=== PATIENT | male | born 1965 ===

== ENCOUNTER 2019-11-29 10:41 | Outpatient (CLI) | payer BC, SELFPAY ==
[2019-11-29 10:53] LABS: Basophils Absolute Auto 0.03 K/mm3 (0.00-0.10); Basophils Percent Auto 0.4 % (0.0-1.0); Eosinophils Absolute Auto 0.08 K/mm3 (0.02-0.50); Eosinophils Percent Auto 1.2 % (1.0-6.0); Hematocrit 44.1 % (40.0-54.0); Hemoglobin 14.8 g/dL (14.0-18.0); Immature Granulocyte Absolute 0.04 K/mm3 (0.00-0.00); Immature Granulocyte Percent A 0.6 % (0.0-0.0); Lymphocytes Absolute Auto 2.23 K/mm3 (1.10-4.50); Lymphocytes Percent Auto 33.4 % (18.0-42.0); Mean Corpuscular HGB Conc 33.6 g/dL (32.0-36.0); Mean Corpuscular Hemoglobin 30.6 pg (27.0-31.0); Mean Corpuscular Volume 91.1 fL (78.0-102.0); Mean Platelet Volume 10.5 fl (8.7-11.0); Monocytes Percent Auto 10.5 % (2.0-11.0); Neutrophils Absolute Auto 3.6 K/mm3 (1.7-7.2); Neutrophils Percent Auto 53.9 % (50.0-70.0); Platelet Count Result 286 K/mm3 (150-420); Red Blood Count 4.84 M/mm3 (4.70-6.10); Red Cell Distribution Width 12.1 % (11.6-14.4); White Blood Count 6.7 K/mm3 (4.8-10.8)
[2019-11-29 11:04] LABS: Creatinine Urine 28.01 mg/dL (40-278); MALB Creatinine Ratio 4.6 mg/g (0-30); Microalbumin Urine Random 1.3 mg/L
[2019-11-29 11:05] LABS: Hemoglobin A1C 5.4 % (<5.7)
[2019-11-29 11:40] LABS: Alanine Aminotransferase 36 U/L (16-63); Albumin Level 3.8 g/dL (3.4-5.0); Alkaline Phosphatase 92 U/L (46-116); Anion Gap 11.2 mmol/L (7-16); Aspartate Amino Transferase 20 U/L (15-37); Bilirubin,Total 0.5 mg/dL (0.00-1.00); Blood Urea Nitrogen 21 mg/dL (7-18); Calcium 9.5 mg/dL (8.5-10.1); Carbon Dioxide 31 mmol/L (21-32); Chloride 100 mmol/L (98-108); Cholesterol 206 mg/dL (0-200); Estimated Glomerular Filt Rate 55; Glucose 104 mg/dL (70-99); HDL Direct 30 mg/dL (40-60); LDL Cholesterol Calculated 140 mg/dL (<130); Osmolality Calculated 289 mOsm/kg (285-295); Potassium 4.2 mmol/L (3.5-5.1); Sodium 138 mmol/L (136-145); Total Protein 7.3 g/dL (6.4-8.2); Triglycerides 179 mg/dL (0-150); Uric Acid 9.3 mg/dL (3.5-7.2)
[2019-12-02 04:22] LABS: Hepatitis C Signal to Cutoff 0.02 ratio (<1.00); Hepatitis C Virus Antibody Nonreactive (Nonreactive)
== END 2019-11-29 10:42 | disposition home or self-care (01) ==
PROVIDERS: PCP Family Medicine; Visit Provider Family Medicine
DX: M10.9 Gout, unspecified (principal); I10 Essential (primary) hypertension; Z11.59 Encounter for screening for other viral diseases; R73.02 Impaired glucose tolerance (oral)
CPT/HCPCS: 36415; 80053; 80061; 82043; 83036; 84443; 84550; 85025

== ENCOUNTER 2021-10-04 09:46 | Outpatient (NON) | payer BC, SELFPAY | END 2021-10-04 09:47 | disposition home or self-care (01) | LOC: CHSLAB 09:48 | PROVIDERS: Visit Provider Family Medicine | DX: N39.0 Urinary tract infection, site not specified (principal) | CPT/HCPCS: 87077; 87086; 87088; 87186 ==

== ENCOUNTER 2022-06-03 13:04 | Outpatient (CLI) | payer BC, SELFPAY ==
--- NOTE | ~2022-06-03 | XR_ITS ---
XR elbow RT min 3V DATE: 06/03/2022 13:21 INDICATION: Elbow injury one month ago. Posterior pain TECHNIQUE: 4 views COMPARISON: None FINDINGS: Prominent dorsal spurring at the olecranon process. No fracture or dislocation or joint effusion. No periosteal reaction or bone destruction. IMPRESSION: Prominent dorsal olecranon process spur Reviewed, dictated and finalized at location B. 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
== END 2022-06-03 13:05 | disposition home or self-care (01) ==
LOC: CHSIMG 13:05
PROVIDERS: PCP Family Medicine; Visit Provider Family Medicine
DX: M25.521 Pain in right elbow (principal)
CPT/HCPCS: 73080

== ENCOUNTER 2023-01-02 15:22 | Observation (INO) | payer BC, SELFPAY ==
[2023-01-02] VITALS (29 sets, daily range): BP systolic 109–182; BP diastolic 64–94; PULSE 68–83; RESP 17–30; TEMP 36.5–37.2; O2SAT 95–100; BMI 36.1
--- NOTE | ~2023-01-02 | CT_ITS ---
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 Automated exposure control and iterative reconstruction technique were employe d. The dose-length product was 1160.00 mGy-cm. COMPARISON: None. FINDINGS: Lower thorax: Bilateral sub-6 mm pulmonary nodules. Dependent atelectasis. Aortic valve/coronary jasvir ry calcification. Liver: Enlarged. Tiny, subcentimeter hypodensity at the liver dome, too small to characterize but mos t likely represents a cyst or hemangioma. Biliary/Gallbladder: Mild gallbladder dilation. No stone. Mild gallbladder wall inflammatory change. No bile duct dilation. Pancreas: No mass or duct dilation. Spleen: Normal. Adrenals:No mass. Kidneys: Multiple bilateral cysts and lesions that are too small to characterize but most likely repr esent cysts. No suspicious mass. Mild bilateral perinephric stranding. No obstructing calcification o r suspicious mass. GI tract: No small or large bowel dilation. Normal appendix. Mesentery/Peritoneum: No ascites, mass, or free air. Retroperitoneum: No mass. Atherosclerotic abdominal aortic and/or arterial calcifications. Pelvis: Mild prostate enlargement. Urinary bladder wall thickening. Soft Tissues: Soft tissues and body wall unremarkable. Bones: No acute osseous finding. Uncomplicated lumbar fusion hardware. IMPRESSION: 1. Multiple sub-6 cm pulmonary nodules, which require no additional workup unless the patient is at h igh risk in which case consider an optional low-dose noncontrast CT of the chest in 12 months. 2. Hepatomegaly. 3. Mild gallbladder hydrops with gallbladder wall inflammatory change, may represent acute cholecysti tis in the appropriate clinical context. 4. Urinary bladder wall thickening may be secondary to incomplete distention, outlet compromise or cy stitis. Reviewed, dictated and finalized at location K. IMPRESSION: 1. Multiple sub-6 cm pulmonary nodules, which require no additional workup unle ss the patient is at high risk in which case consider an optional low-dose nonc ontrast CT of the chest in 12 months. 2. Hepatomegaly. 3. Mild gallbladder hydrops with gallbladder wall inflammatory change, may repr esent acute cholecystitis in the appropriate clinical context. 4. Urinary bladder wall thickening may be secondary to incomplete distention, o utlet compromise or cystitis.
--- NOTE | ~2023-01-02 | US_ITS ---
US abdomen complete EXAMINATION: US Abdomen Complete INDICATION: Acute cholecystitis PROCEDURE: Realtime High Resolution abdomen ultrasound. COMPARISON: No prior studies for comparison FINDINGS: Gallbladder wall is thickened. There are gallstones. Possible trace pericholecystic fluid. Common bile duct measures 6.7 mm. Liver echotexture within normal limits without focal mass. Pancreas within normal limits. Pancreati c tail is obscured by bowel gas. Spleen is unremarkeable. Renal echotexture is within normal limits bilaterally without hydronephrosis, contour deforming mass or renal stone. There are bilateral renal cysts, largest on the left measuring 6 cm. Right kidney measures 12 cm. Left kidney measures 10.8 cm. Visualized aspects of the aorta and IVC are within normal limits. Portal vein is patent. Positive son ographic Domingo's sign indicated by the technologist. IMPRESSION: 1: Cholelithiasis with gallbladder wall thickening, positive sonographic Domingo's sign and possible p ericholecystic fluid. Constellation of findings is compatible with cholecystitis. Reviewed, dictated and finalized at location L. IMPRESSION: 1: Cholelithiasis with gallbladder wall thickening, positive sonographic Domingo 's sign and possible pericholecystic fluid. Constellation of findings is compat ible with cholecystitis.
--- NOTE | 2023-01-02 15:23 | ED.ABDPAIN ---
HPI - Abdominal Pain General Chief Complaint: Abdominal Pain Stated Complaint: upper gastric pain Time Seen by Provider: 01/02/23 15:22 Source: patient Mode of arrival: ambulatory Limitations: no limitations History of Present Illness HPI narrative: 57-year-old male, ex-smoker, Alcohol use with a history of hypertension, gout presents to the ER with a 3 hour history of -- acute epigastric pain which started after he ate hamburger. No nausea/vomiting. No diarrhea. No fever. Prior history of intermittent epigastric pain. -- Patient is very anxious and shaky. had colonoscopy in view of family history of colon cancer and was noted to be unremarkable. MD elicited complaint: abdominal pain Pertinent past history: gastritis Pain Consistency: intermittent Location: epigastric Severity: severe Quality: cramping and aching Radiation: none Exacerbating factors: nothing Relieving factors: nothing Associated symptoms: denies other symptoms Related Data Allergies Allergy/AdvReac Type Severity Reaction Status Date / Time No Known Allergies Allergy Verified 01/02/23 15:28 Review of Systems Review of Systems: All systems reviewed & are unremarkable except as noted in HPI and below Constitutional: Constitutional: Reports as per HPI and Reports no additional constitutional complaints Eyes: Eyes: Reports as per HPI and Reports no additional eye complaints ENT: Reports system reviewed and no additional complaints, except as documented and Reports as per HPI Cardiovascular: Cardiovascular: Reports as per HPI and Reports no additional cardiovascular complaints Respiratory: Respiratory: Reports as per HPI and Reports no additional respiratory complaints Gastrointestinal: Gastrointestinal: Reports as per HPI, Reports no additional gastrointestinal complaints and Reports abdominal pain Genitourinary: Genitourinary: Reports no additional male genitourinary complaints Musculoskeletal: Musculoskeletal: Reports no additional musculoskeletal complaints and Reports as per HPI Integumentary/Breasts: Skin/Breast: Reports system reviewed and no additional complaints, except as docu and Reports as per HPI Neurologic: Reports system reviewed and no additional complaints, except as documented and Reports as per HPI [facility] Past Medical History Medical History (Updated 01/02/23 @ 18:32 by Aleksandr Boyle MD) Gout Hypertension Surgical History Surgical History (Updated 08/26/22 @ 13:06 by Kathy Venegas MA) History of ankle surgery 1990 History of back surgery 1997 Social History Social History Smoking status: Never smoker Alcohol intake: current Substance use: never Substance use type: does not use Lack of Transportation: No Lack of Food: Never True Current Housing: I Have Housing Concerned About Future Housing: No Difficulty Paying Gas/Electric Bills: No Difficulty Paying for Meds: No Currently Unemployed: No Education: High School Diploma/GED Difficulty w/ Childcare or Family Care: No Living arrangements: with family Occupation/Education: occupation 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 Will get a CT of the abdomen and pelvis to rule out perforation. blood work revealed a normal white cell count and a normal lipase. Normal lactate. CT revealed questionable acute cholecystitis without any gallstones. It appears unlikely for this patient to have acalculous cholecystitis. The patient is afebrile without any white count and normal LFTs. Will admit the patient and attempt to get an ultrasound in the morning. Meanwhile will keep him NPO give IV fluids and start IV antibiotics. History of alcohol use/ anxiety-- received Ativan with improvement in his anxiety renal insufficiency Vital Signs Vital signs: Vital Signs
--- NOTE | 2023-01-02 15:31 | ECG_ITS ---
Measurements Intervals [place] Rate: 64 P: 50 [place]: 210 QRS: 40 QRSD: 82 T: 48 QT: 369 QTc: 382 Interpretive Statements SINUS RHYTHM WITH FIRST DEGREE AV BLOCK LOW QRS VOLTAGE IN PRECORDIAL LEADS [QRS DEFLECTION < 1.0 mV IN CHEST LEADS] BORDERLINE ECG NO PREVIOUS ECG AVAILABLE FOR COMPARISON Electronically Signed On 01-02-2023 16:15:48 CDT by Felix Killian M.D.
[2023-01-02] MEDS: ONDANSETRON INJ 4 MG/2 ML VIAL IV PUSH (15:48)
[2023-01-02] MEDS: LACTATED RINGERS 1,000 ML 999 ML IV CONT (15:48)
[2023-01-02] MEDS: LORazepam INJ (*CRX) 2 MG/ML VIAL 1 MG IV PUSH (15:49)
[2023-01-02 15:56] LABS: Basophils Absolute Auto 0.04 K/mm3 (0.00-0.10); Basophils Percent Auto 0.5 % (0.0-1.0); Eosinophils Absolute Auto 0.04 K/mm3 (0.02-0.50); Eosinophils Percent Auto 0.5 % (1.0-6.0); Hematocrit 45.3 % (40.0-54.0); Immature Granulocyte Absolute 0.04 K/mm3 (0.00-0.00); Immature Granulocyte Percent A 0.5 % (0.0-0.0); Lymphocytes Absolute Auto 1.11 K/mm3 (1.10-4.50); Lymphocytes Percent Auto 15.1 % (18.0-42.0); Mean Corpuscular HGB Conc 33.1 g/dL (32.0-36.0); Mean Corpuscular Hemoglobin 30.8 pg (27.0-31.0); Mean Platelet Volume 10.8 fl (8.7-11.0); Monocytes Absolute Auto 0.45 K/mm3 (0.10-0.90); Monocytes Percent Auto 6.1 % (2.0-11.0); Neutrophils Absolute Auto 5.7 K/mm3 (1.7-7.2); Neutrophils Percent Auto 77.3 % (50.0-70.0); Platelet Count Result 229 K/mm3 (150-420); Red Blood Count 4.87 M/mm3 (4.70-6.10); Red Cell Distribution Width 12.3 % (11.6-14.4); White Blood Count 7.4 K/mm3 (4.8-10.8)
[2023-01-02 16:09] LABS: INR 0.9; Prothrombin Time 9.9 Seconds (9.50-12.10)
[2023-01-02 16:12] LABS: Alanine Aminotransferase 39 U/L (16-63); Albumin Level 3.6 g/dL (3.4-5.0); Alkaline Phosphatase 102 U/L (46-116); Anion Gap 10 mmol/L (8-16); Aspartate Amino Transferase 23 U/L (15-37); Bilirubin,Total 0.3 mg/dL (0.00-1.00); Blood Urea Nitrogen 21 mg/dL (7-18); Calcium 9.3 mg/dL (8.5-10.1); Carbon Dioxide 25 mmol/L (21-32); Chloride 103 mmol/L (98-108); Estimated CRCL calculation 65 ml/min; Estimated Glomerular Filt Rate 51; Glucose 120 mg/dL (70-99); Lipase 36 U/L (16-77); Osmolality Calculated 290 mOsm/kg (285-295); Potassium 3.9 mmol/L (3.5-5.1); Sodium 138 mmol/L (136-145); Total Protein 7.3 g/dL (6.4-8.2)
[2023-01-02 16:14] LABS: Troponin I 6.9 ng/L (0.00-60.4); Uric Acid 6.9 mg/dL (3.5-7.2)
[2023-01-02 16:15] LABS: Appearance Urine Clear (Clear); Bilirubin Urine Negative (Negative); Blood Urine 2+ (Negative); Color Urine Light Yellow (Yellow); Glucose Urine UA Negative (Negative); Ketones Urine Negative (Negative); Leukocyte Esterase Ur Negative LEU/UL (Negative); Nitrate Urine Negative (Negative); Protein Urine Negative (Negative); Specific Grav Ur 1.015 (1.010-1.020); pH Urine 5.5 (5.0-8.0)
[2023-01-02 16:16] LABS: Lactic Acid Reflex 1.8 mmol/L (0.4-2.0)
[2023-01-02 16:20] LABS: Add Urine Microscopic? YES; Bacteria Urine Trace /hpf; Squamous Epithelial Cell Urine Rare /hpf (Few); WBC Urine None seen /hpf (0-3)
--- NOTE | 2023-01-02 16:53 | PC.NURSE ---
PT IS SLEEPING ON STRETCHER IN EXAM ROOM, REPORTS THE PAIN HAS SUBSIDED. PT IS WAITING CT RESULTS AT THIS TIME. IVF INFUSING ORDERED WITHOUT DIFFICULTY. WILL CONTINUE TO MONITOR.
--- NOTE | 2023-01-02 17:34 | PC.NURSE ---
PT AMBULATORY TO RR WITHOUT DIFFICULTY. NAD NOTED. PT HAS BEEN RESTING ON STRETCHER WITHOUT DIFFICULTY. PT REPORTS HE IS FEELING BETTER. WILL CONTINUE TO MONITOR.
[2023-01-02] MEDS: LACTATED RINGERS 1,000 ML 100 ML IV CONT (18:21)
--- NOTE | 2023-01-02 18:43 | PC.NURSE ---
PT IS TO BE ADMITTED TO ROOM 204. PT IS AWARE AND AGREEABLE TO PLAN OF CARE.
--- NOTE | 2023-01-02 19:48 | ADMGEN ---
This patient, Atul Marrero, was admitted to 2nd Floor Room 204-2. Patient/family oriented to hospital policies and general routines including ID bracelet, bed and alarms, visiting hours, pain management, procedures, bathroom and other care routines, personal items, smoking policy, room service/diet, and visiting hours. Information on how to activate the Rapid Response Team has been discussed. Patient/Family are encouraged to report perceived risks to care and to ask questions if they do not understand what they are told or what they should do.
[2023-01-02] MEDS: PANTOPRAZOLE SODIUM IV 40 MG VIAL IV PUSH (21:01)
[2023-01-03] VITALS: BP 119/72; PULSE 79; RESP 20; TEMP 36.3; O2SAT 94
[2023-01-03 05:41] LABS: Basophils Absolute Auto 0.05 K/mm3 (0.00-0.10); Basophils Percent Auto 0.7 % (0.0-1.0); Eosinophils Absolute Auto 0.13 K/mm3 (0.02-0.50); Eosinophils Percent Auto 1.8 % (1.0-6.0); Hematocrit 42.1 % (40.0-54.0); Hemoglobin 13.9 g/dL (14.0-18.0); Immature Granulocyte Absolute 0.04 K/mm3 (0.00-0.00); Immature Granulocyte Percent A 0.6 % (0.0-0.0); Lymphocytes Absolute Auto 1.84 K/mm3 (1.10-4.50); Lymphocytes Percent Auto 25.6 % (18.0-42.0); Mean Corpuscular Hemoglobin 30.8 pg (27.0-31.0); Mean Corpuscular Volume 93.3 fL (78.0-102.0); Mean Platelet Volume 10.6 fl (8.7-11.0); Monocytes Absolute Auto 0.56 K/mm3 (0.10-0.90); Monocytes Percent Auto 7.8 % (2.0-11.0); Neutrophils Absolute Auto 4.6 K/mm3 (1.7-7.2); Neutrophils Percent Auto 63.5 % (50.0-70.0); Platelet Count Result 216 K/mm3 (150-420); Red Blood Count 4.51 M/mm3 (4.70-6.10); Red Cell Distribution Width 12.4 % (11.6-14.4); White Blood Count 7.2 K/mm3 (4.8-10.8)
[2023-01-03 05:57] LABS: Anion Gap 10 mmol/L (8-16); Blood Urea Nitrogen 15 mg/dL (7-18); Carbon Dioxide 27 mmol/L (21-32); Chloride 103 mmol/L (98-108); Estimated CRCL calculation 66 ml/min; Estimated Glomerular Filt Rate > 60; Glucose 110 mg/dL (70-99); Osmolality Calculated 291 mOsm/kg (285-295); Sodium 140 mmol/L (136-145)
--- NOTE | 2023-01-03 07:19 | PM.IMHP ---
H&P: HPI History of Present Illness Date/Time: 01/03/23 07:19 Chief Complaint: abdominal pain after eating a cheeseburger Narrative: This is a 57 year old gentleman with a PMH of HTN on lisinopril-hydrochlorothiazide and gout taking allopurinol who comes to the hospital with RUQ abdominal pain after eating a cheeseburger. He described the pain as sharp and constant pointing to his RUQ. He received dilaudid for the pain which helped. He has never had an episode of pain like this before. On assessment is found laying in bed resting. He says that his pain has resolved and he is feeling much better. He wants to go home. On assessment he still has a positive mendoza's sign. He denies any other complaints; no H/A, dizziness, CP, SOB, cough fever chills, N/V/D. 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 Review of Systems Review of Systems: All systems reviewed & are unremarkable except as noted in HPI and below PMFSH Past Medical History Medical History Gout Hypertension Surgical History Surgical History History of ankle surgery 1990 History of back surgery 1997 Family History Family History Mother Breast cancer Grandparent Malignant neoplasm of prostate Father Lung cancer Hypertension Social History Social History Smoking status: Former smoker Tobacco type: cigarettes Second hand tobacco smoke exposure: No Smoking end date: 07/17/08 Alcohol intake: current Drinks per week: 12 Substance use: never Substance use type: does not use Lack of Transportation: No Lack of Food: Never True Current Housing: I Have Housing Concerned About Future Housing: No Difficulty Paying Gas/Electric Bills: No Difficulty Paying for Meds: No Currently Unemployed: No Education: Trade/Vocational Certificate Difficulty w/ Childcare or Family Care: No Living arrangements: with family Occupation/Education: occupation 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 Spiritual care concerns: No Meds Home Medications and Allergies Home Medications Medication Instructions Recorded Confirmed Type lisinopril 20 See Rx Instructions .Route 08/29/22 01/02/23 Rx mg-hydrochlorothiazide 25 mg tablet .COMPLEX #90 tabs allopurinol 100 mg tablet 100 mg PO BID #180 tabs 08/31/22 01/02/23 Rx Allergies Allergy/AdvReac Type Severity Reaction Status Date / Time No Known Allergies Allergy Verified 01/02/23 15:28 Vital Signs Vital Signs - 24 hr 01/02/23 15:29 01/02/23 15:22 01/02/23 15:25 Temperature 98.9 F Pulse Rate 79 72 Respiratory Rate 22 H 30 H Blood Pressure 182/91 H Pulse Oximetry 98 Oxygen Delivery Room Air Room Air 01/02/23 15:30 01/02/23 15:32 01/02/23 15:45 Temperature Pulse Rate 73 68 75 Respiratory Rate 20 25 H 19 Blood Pressure 159/94 H Pulse Oximetry 98 99 100 Oxygen Delivery 01/02/23 16:00 01/02/23 16:02 01/02/23 16:12 Temperature Pulse Rate 81 82 81 Respiratory Rate 26 H 26 H 22 H Blood Pressure 166/88 H 142/77 H Pulse Oximetry 98 Oxygen Delivery 01/02/23 16:15 01/02/23 16:17 01/02/23 16:30 Temperature Pulse Rate 83 78 78 Respiratory Rate 26 H 24 H 24 H Blood Pressure 126/64 Pulse Oximetry Oxygen Delivery 01/02/23 16:31 01/02/23 16:54 01/02/23 16:55 Temperature Pulse Rate 78 78 76 Respiratory Rate 17 22 H 27 H Blood Pressure 136/81 129/75 Pulse Oximetry Oxygen Delivery 01/02/23 17:00 01/02/23 17:01 01/02/23 17:15 Temperature Pulse Rate 76 77 75 Respiratory Rate 20 21 H 18 Blood Pressure 113/76 Pulse Oximetry 95 95 Oxygen Delivery 01/02/23 17:16 01/02/23 17:30 01/02/23 17:31 Temperature Pu
[2023-01-03 07:48] VITALS: BP 120/74; PULSE 73; RESP 16; TEMP 36.6; O2SAT 96
[2023-01-03] MEDS: lisinopriL 20 MG TABLET PO (08:28)
[2023-01-03] MEDS: PANTOPRAZOLE SODIUM IV 40 MG VIAL IV PUSH (08:32)
--- NOTE | 2023-01-03 09:14 | PC.NURSE ---
Patient refused to take HCTZ and lovenox, stating that he does not recognize those drugs. Ballistics Teacher educated patient on reasons for administration and HCTZ verified with medical records as new prescription from DR. Muñiz on 11/26/22. Ballistics Teacher advised patient to speak with DR. Muñiz about that drug.
--- NOTE | 2023-01-03 09:28 | PM.DS ---
DS: Admitting Diagnosis Discharge Date 01/03/2023 Admitting Diagnosis acute cholecystits DS: Discharge Diagnosis Discharge Diagnosis Plan This is a 57 year old gentleman with a PMH of HTN on lisinopril-hydrochlorothiazide and gout taking allopurinol who comes to the hospital with RUQ abdominal pain after eating a cheeseburger. He described the pain as sharp and constant pointing to his RUQ. He received dilaudid for the pain which helped. He has never had an episode of pain like this before. On assessment is found laying in bed resting. He says that his pain has resolved and he is feeling much better. He wants to go home. On assessment he still has a positive domingo's sign. He denies any other complaints; no H/A, dizziness, CP, SOB, cough fever chills, N/V/D. 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 Plan Acute Cholecystitis -RUQ abdominal pain with + Domingo's sign, started after eating a fatty meal. -Liver enzymes WNL -CT abdomen shows mild gallbladder hydrops with gallbladder wall inflammatory changes. Will obtain RUQ abdominal ultrasound today. -Pain has resolved. Will advance diet from clears to low fat and see if he tolerates a diet. -If ultrasound shows non-obstructing stones and he is? tolerating a diet without pain then he can likely discharge home this afternoon with appropriate outpatient follow up.? US shows cholelithiasis with gallbladder wall thickening and possible pericholecystic fluid. I spoke with Dr Hawkins, general surgeon who recommends d/c with low fat diet, PO antibiotics, and follow up for outpatient lap-choley. HTN -Re-started home medications lisinopril 20 mg-hydrochlorothiazide 25 mg -baseline blood pressures from clinic notes are 120/80's. During admission BP has been slightly elevated at 140/80's. Expect elevation is related to pain. Gout -no acute flare -on home dose of allopurinol 100 mg PO BID Incidentals -U/A has +2 Ur blood and Urine RBC 6-10. CT abdomen notes bladder wall thickening secondary to incomplete distention, outlet compromise, or cystis. I asked him if he was having any dysuria, bladder fullness, or frequency. He denies all and says that he has had blood in his urine all my life . He says his father has the same problem. He says sometimes it shows up at clinic follow ups and sometimes not. I asked if he has ever seen a urologist but he doesn't believe so. I would recommend follow up with urology as an outpatient. DS: Summary Time Spent with Patient Time attestation: Total time spent providing and/or coordinating discharge services: 33 Exam Narrative: General: well appearing, well developed, appears stated age. Neuro: Alert and orientated x 4. PERRLA. Cranial nerves 2-12 intact without focal deficit. HEENT: normocephalic, atraumatic. Mucous membranes moist. Neck supple without JVD or lymphadenopathy. Respiratory: clear to auscultation bilaterally. No rales/rhonic/wheezes. Cardiovascular: Regular rate and rhythm, normal S1-S2 upon auscultation. No murmurs, rubs, or clicks. PMI is nondisplaced. Abdomen: Soft, round, non-distended.?+Domingo's sign.?Bowel sounds present to all four quadrants. Extremities: No cyanosis, clubbing, or edema present. Pulses are palpable 2/2.? Active ROM to all four extremities. Skin: Warm, dry, and intact, without rash, erythema, or lesion. Psych: pleasant, cooperative, normal speech, normal affect. DS: Data Data Completed and Pending Labs on day of discharge: Labs from last 24 hours 01/03/23 01/02/23 01/02/23 05:32 16:10 15:50 WBC 7.2 RBC 4.51 L Hgb 13.9 L Hct 42.1 MCV 93.3 MCH 30.8 MCHC 33.0 RDW 12.4 Plt Count 216 MPV 10.6 Immature Gran % (Auto) 0.6 H Neut % (Auto) 63.5 Lymph % (Auto) 25.6 [place] % (Auto) 7.8 Eos % (Auto) 1.8 Baso % (Auto) 0.7 Lymph # (Auto) 1.84 [place] # (Auto) 0.56 Eos # (Auto) 0.13 Baso # (Auto) 0.05 Abs Immat Gra
--- NOTE | 2023-01-03 11:25 | PC.NURSE ---
Discharge instructions discussed with patient. Patient voiced understanding. Personal items sent home with patient. Patient left unit in w/c, accompanied by check writer. Patient left hospital grounds in privately owned vehicle.
--- NOTE | 2023-01-03 13:06 | PM.DS ---
DS: Admitting Diagnosis Discharge Date 01/03/23 DS: Summary Time Spent with Patient Time attestation: Total time spent providing and/or coordinating discharge services: DS: Data Data Completed and Pending Labs on day of discharge: Labs from last 24 hours 01/03/23 01/02/23 01/02/23 05:32 16:10 15:50 WBC 7.2 RBC 4.51 L Hgb 13.9 L Hct 42.1 MCV 93.3 MCH 30.8 MCHC 33.0 RDW 12.4 Plt Count 216 MPV 10.6 Immature Gran % (Auto) 0.6 H Neut % (Auto) 63.5 Lymph % (Auto) 25.6 [place] % (Auto) 7.8 Eos % (Auto) 1.8 Baso % (Auto) 0.7 Lymph # (Auto) 1.84 [place] # (Auto) 0.56 Eos # (Auto) 0.13 Baso # (Auto) 0.05 Abs Immat Gran (auto) 0.04 H Absolute Neuts (auto) 4.6 Absolute Nucleated RBC 0.00 Nucleated RBC % 0.0 PT INR Sodium 140 138 Potassium 4.0 3.9 Chloride 103 103 Carbon Dioxide 27 25 Anion Gap 10 10 BUN 15 21 H Creatinine 1.13 1.43 H Estim Creat Clear Calc 66 65 Estimated GFR > 60 51 L Glucose 110 H 120 H Calculated Osmolality 291 290 Lactic Acid 1.8 Uric Acid 6.9 Calcium 9.0 9.3 Total Bilirubin 0.3 AST 23 ALT 39 Alkaline Phosphatase 102 Troponin I 6.9 Total Protein 7.3 Albumin 3.6 Lipase 36 Urine Color Light yellow Urine Appearance Clear Urine pH 5.5 Ur Specific [place] 1.015 Urine Protein Negative Urine Glucose (UA) Negative Urine Ketones Negative Ur Blood (Man) 2+ H Urine Nitrate Negative Urine Bilirubin Negative Urine Urobilinogen 1.0 Leukocyte Esterase Rfl Negative Urine RBC 6-10 H Urine WBC None seen Ur Squamous Epith Cells Rare Urine Bacteria Trace 01/02/23 15:49 WBC 7.4 RBC 4.87 Hgb 15.0 Hct 45.3 MCV 93.0 MCH 30.8 MCHC 33.1 RDW 12.3 Plt Count 229 MPV 10.8 Immature Gran % (Auto) 0.5 H Neut % (Auto) 77.3 H Lymph % (Auto) 15.[address] [place] % (Auto) 6.1 Eos % (Auto) 0.5 L Baso % (Auto) 0.5 Lymph # (Auto) 1.11 [place] # (Auto) 0.45 Eos # (Auto) 0.04 Baso # (Auto) 0.04 Abs Immat Gran (auto) 0.04 H Absolute Neuts (auto) 5.7 Absolute Nucleated RBC 0.00 Nucleated RBC % 0.0 PT 9.9 INR 0.9 Sodium Potassium Chloride Carbon Dioxide Anion Gap BUN Creatinine Estim Creat Clear Calc Estimated GFR Glucose Calculated Osmolality Lactic Acid Uric Acid Calcium Total Bilirubin AST ALT Alkaline Phosphatase Troponin I Total Protein Albumin Lipase Urine Color Urine Appearance Urine pH Ur Specific [place] Urine Protein Urine Glucose (UA) Urine Ketones Ur Blood (Man) Urine Nitrate Urine Bilirubin Urine Urobilinogen Leukocyte Esterase Rfl Urine RBC Urine WBC Ur Squamous Epith Cells Urine Bacteria Discharge Plan Discharge Attending physician on discharge: Evert Beatty Discharging Clinician: Chen Hoyos Anticipated Discharge Date/Time: 01/03/23 12:00 Patient Disposition: Home, Self-Care Activity: may shower and unlimited Diet: as tolerated and low fat Discharge Instructions: Discharge disposition: Take medications as prescribed Follow a low fat diet. Choose lean meats like chicken, turkey, fish. Low fat dairy products. Eat a variety of fruits and vegetables and whole grains. Avoid fatty foods, fried foods, high fat dairy, sugary foods, eggs, and carbonated beverages. Return to the emergency department if he developed sudden shortness of breath, chest pain, nausea, vomiting, upset stomach or intractable diarrhea. Return to the emergency department if you develop fever greater than 101.5 [address] follow up with Dr Hawkins, general surgery for outpatient gallbladder removal. Please call his office today or tomorrow and let them know you were recently discharged and need outpatient surgery evaluation. We are discharging you with flagyl and ciprofloxacin antibiotics. Please take them as prescribed. Follow-up with the
--- NOTE | 2023-01-03 13:06 | PM.SD2 ---
Same Day Admit/Disch: HPI History of Present Illness Chief complaint: ACUTE CHOLECYSTITIS Narrative: Atul Marrero is a 57 year old male with past medical history of hypertension, gout who comes to the ED with complaints of right upper quadrant pain after eating a cheeseburger. Pain is sharp in consistent to the right upper quadrant. He denies any current or recent episodes of the abdominal pain. His last meal was a cheeseburger. In the ED labs were unremarkable. WBC were stable, lipase was negative, CT showed cholecystitis without gallstones. No notable fever. Patient was admitted for ultrasound. Currently he does have a positive Domingo's sign. He is complaining of some slight abdominal pain. He will be NPO until the ultrasound is completed. Will await results, and see if general surgery should be contacted. He currently denies any chest pain, shortness of breath, nausea, vomiting, diarrhea, constipation, weakness, fatigue, lightheadness, dizziness, fevers, sweats, chills, syncope and falls. Patient is being admitted to the hospitalist service under observation. [facility] Past Medical History Medical History Gout Hypertension Surgical History Surgical History History of ankle surgery 1990 History of back surgery 1997 Family History Family History Mother Breast cancer Grandparent Malignant neoplasm of prostate Father Lung cancer Hypertension Social History Social History (Updated 01/04/23 @ 07:18 by HALLE Curran) Social History: Patient wishes to be full code. He does drink daily. 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 Spiritual care concerns: No Same Day Admit/Disch: Med Pre-admit Medications Home Medications Medication Instructions Recorded Confirmed Type lisinopril 20 See Rx Instructions .Route 08/29/22 01/02/23 Rx mg-hydrochlorothiazide 25 mg tablet .COMPLEX #90 tabs allopurinol 100 mg tablet 100 mg PO BID #180 tabs 08/31/22 01/02/23 Rx ciprofloxacin HCl 500 mg tablet 500 mg PO Q12H #20 tabs 01/03/23 Rx (Cipro) metronidazole 500 mg tablet 500 mg PO Q6H 10 days #40 tabs 01/03/23 Rx Exam Narrative: General: well-nourished, well-appearing 57-year-old male, sitting up on side of bed, comfortable, NARD Neuro: awake, alert and oriented x4, speech clear, no focal neuro deficits noted HEENMT: normocephalic, atraumatic, EOMI, sclerae anicteric, moist oral mucosa Respiratory: Clear to auscultation bilaterally without crackles, rhonchi or wheezes, nonlabored breathing Cardio: regular rate, regular rhythm with S1-S2 Abdomen: nondistended, normoactive bowel sounds, soft, tender to palpation in RUQ, positive Domingo's sign Extremities: no edema, erythema, or tenderness to palpation, DP pulses 2+ bilaterally Skin: no rashes or lesions, warm and dry Psych: appropriate mood and affect, judgment and insight intact DS: Data Data Completed and Pending Labs on day of discharge: Labs from last 24 hours 01/03/23 01/02/23 01/02/23 05:32 16:10 15:50 WBC 7.2 RBC 4.51 L Hgb 13.9 L Hct 42.1 MCV 93.3 MCH 30.8 MCHC 33.0 RDW 12.4 Plt Count 216 MPV 10.6
--- NOTE | 2023-01-04 15:29 | PC.NURSE ---
Pt states he received and understood the discharge instructions. Pt has no other comments.
== END 2023-01-03 11:25 | disposition home or self-care (01) ==
LOC: CHSED 18:32 → CHS2ND 18:44
PROVIDERS: Nurse Practitioner Family; Admitting Provider Internal Medicine; Emergency Provider Internal Medicine Critical Care Medicine; PCP Family Medicine; Visit Provider Internal Medicine
DX: K80.00 Calculus of gallbladder with acute cholecystitis without obstruction (principal); I10 Essential (primary) hypertension; M10.9 Gout, unspecified; F10.90 Alcohol use, unspecified, uncomplicated; Z80.0 Family history of malignant neoplasm of digestive organs; Z87.891 Personal history of nicotine dependence
CPT/HCPCS: 36415; 74177; 76700; 80048; 80053; 81001; 83605; 83690; 84484; 84550; 85025; 85610; 87040; 93005; 96361; 96365; 96366; 96367; 96375; 96376; 99285; A9270; C9113; G0378; J2060; J2405; J2543; J7120; Q9967

== ENCOUNTER 2024-10-01 10:09 | Emergency (ER) | payer BC, SELFPAY ==
--- NOTE | ~2024-10-01 | XR_ITS ---
Left ankle Technique: AP, oblique, and lateral views were obtained. Clinical History: Injury Findings: No acute fracture or dislocation is seen. Osseous alignment is anatomic. Ankle mortise and other visualized joint spaces are preserved. There is mild diffuse soft tissue swelling. Impression: No fracture or dislocation. Mild diffuse soft tissue swelling. Reviewed, dictated and finalized at [facility]. Impression: No fracture or dislocation. Mild diffuse soft tissue swelling.
--- NOTE | ~2024-10-01 | XR_ITS ---
Left foot Technique: AP, oblique, and lateral views were obtained. Clinical History: Injury Findings: No acute fracture or dislocation is seen. Osseous alignment is anatomic. Joint spaces are p reserved without erosive or degenerative change. Soft tissues are unremarkable. Impression: Unremarkable left foot radiographs. Reviewed, dictated and finalized at location . Impression: Unremarkable left foot radiographs.
[2024-10-01 10:09] VITALS: BP 169/97; PULSE 84; RESP 16; TEMP 36.1; O2SAT 98
--- NOTE | 2024-10-01 10:41 | ED_ITS ---
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 Complains of some swelling and tenderness on the medial aspect and lateral aspect of his foot and ankle. Hurts to walk. He rates the pain as 2 at rest and 5-6 when he is walking on it. He has been taking ibuprofen 4-5 tablets 3 times a day. It also hurts when he puts his boot on. Denies any previous injury to that foot or ankle. Says his toes feel little tingly but he thought this might be the gout as it felt a little bit like that a week ago he started taking his allopurinol twice a day which is what he is supposed to do. He had been only taking it once a day. Denies any cough fever sore throat runny nose rash or itching other swelling lumps or bumps other injuries other new numbness weakness problems voiding or stooling talking seeing or hearing dizziness or lightheadedness or any other complaints. Related Data Allergies Allergy/AdvReac Type Severity Reaction Status Date / Time No Known Allergies Allergy Verified 10/01/24 10:19 Review of Systems 2 Review of Systems: All systems reviewed & are unremarkable except as noted in HPI and below PMFSH Past Medical History Medical History Gout Hypertension Surgical History Surgical History History of back surgery 1997 History of ankle surgery 1990 Family History Family History Mother Breast cancer Grandparent Malignant neoplasm of prostate Father Lung cancer Hypertension Social History Social History Social History: Patient wishes to be full code. He does drink daily. 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 Head normocephalic, atraumatic.? Eyes conjunctiva pink sclera nonicteric.? Extraocular movements are intact.? Ears externally normal.? Oropharynx is clear with moist mucous membranes without exudates.? Neck is supple nontender no lymphadenopathy.? Back is nontender.? Lungs are clear.? Heart is regular rate and rhythm without murmurs gallops or rubs.? Chest wall nontender. Abdomen is soft and nontender no hepatosplenomegaly or masses no CVA tenderness no abdominal bruits.? Extremities: Left ankle diffuse moderate swelling and mild tenderness medially over the lateral malleolus and mild tenderness laterally over the inferior malleolus proximal foot is a little bit tender on the left. He has full range of motion. DP and PT pulses are +2. He has normal above the ankle. He has no cyanosis or clubbing Skin is warm and dry without rashes or lesions.? Neurological patient is alert and oriented x4.? Motor and sensory grossly intact.? Gait is normal. Course Vital Signs Vital signs: Vital Signs Temperature 36.1 C L 10/01/24 10:09 Pulse Rate 84 10/01/24 10:09 Respiratory Rate 16 10/01/24 10:09 Blood Pressure 169/97 H 10/01/24 10:09 Pulse Oximetry 98 10/01/24 10:09 Oxygen Delivery Room Air 10/01/24 10:09 Temperature 36.1 C L 10/01/24 10:09 Pulse Rate 84 10/01/24 10:09 Respiratory Rate 16 10/01/24 10:09 Blood Pressure 169/97 H 10/01/24 10:09 Pulse Oximetry 98 10/01/24 10:09 Oxygen Delivery Room Air 10/01/24 10:10 Medical Decision Making MDM Narrative Medical decision making narrative: Patient placed in room: 6 ? History and physical was performed. x-ray of left ankle showed no fracture dislocation mild soft tissue swelling. X-ray of the right foot was negative. sed rate was 42 uric acid was 4.9, CBC was unremarkable, CMP was normal. Independent Historian: patient External Source Review: Differential Dx includes but not limited to: fracture dislocation sprain contusion Medications were Reviewed: home meds reviewed Medications given: Toradol 30 IM Independently Interpreted by me: Shared decision Making: evaluation was discussed all questions were asked and answered patient agreed with plan. This may be a gouty attack it also may be a acute sprain is been getting worse. So patient is going to use Indocin 50 mg 3 times a day and Tylenol as needed prednisone 20 mg 2 tablets daily for 5 days follow up with her primary care provider use the air gel or strep strep use crutches for comfort. Social Situation Impacting Patients Care: Discussed with Dr. DIAZ DIAGNOSIS: Left acute ankle sprain, acute gouty attack DISPOSITION : discharge home CONDITION AT DISCHARGE: stable Vital Signs Vital Signs: Vital Signs Temperature 36.1 C L 10/01/24 10:09 Pulse Rate 84 10/01/24 10:09 Respiratory Rate 16 10/01/24 10:09 Blood Pressure 169/97 H 10/01/24 10:09 Pulse Oximetry 98 10/01/24 10:09 Oxygen Delivery Room Air 10/01/24 10:09 Temperature 36.1 C L 10/01/24 10:09 Pulse Rate 84 10/01/24 10:09 Respiratory Rate 16 10/01/24 10:09 Blood Pressure 169/97 H 10/01/24 10:09 Pulse Oximetry 98 10/01/24 10:09 Oxygen Delivery Room Air 10/01/24 10:10 Lab Data 10/01/24 10:56 10/01/24 10:56 Labs: Lab Results 10/01/24 Range/Units 10:56 WBC 8.1 (4.8-10.8) K/mm3 RBC 4.38 L (4.70-6.10) M/mm3 Hgb 13.4 L (14.0-18.0) g/dL Hct 40.4 (40.0-54.0) % MCV 92.2 (78.0-102.0) fL MCH 30.6 (27.0-31.0) pg MCHC 33.2 (32-36) g/dL RDW 12.5 (11.6-14.4) % Plt Count 270 (150-420) K/mm3 MPV 9.6 (8.7-11.0) fl ESR 42 H (0-20) mm/hr Sodium 141 (136-145) mmol/L Potassium 4.1 (3.5-5.1) mmol/L Chloride 105 (98-108) mmol/L Carbon Dioxide 27 (21-32) mmol/L Anion Gap 9 (4-12) mmol/L BUN 11 (7-18) mg/dL Creatinine 1.10 (0.70-1.30) mg/dL Estim Creat Clear Calc 70 ml/min Estimated GFR > 60 (59 - ) Glucose 90 (70-99) mg/dL Calculated Osmolality 291 (285-295) mOsm/kg Uric Acid 4.9 (3.5-7.2) mg/dL Calcium 8.9 (8.5-10.1) mg/dL Total Bilirubin 0.7 (0.00-1.00) mg/dL AST 22 (15-37) U/L ALT 46 (16-63) U/L Alkaline Phosphatase 90 (46-116) U/L Total Protein 7.2 (6.4-8.2) g/dL Albumin 3.5 (3.4-5.0) g/dL Discharge Plan Discharge Clinical Impression: Left ankle sprain Qualifiers: Encounter type: initial encounter Involved ligament of ankle: unspecified ligament Qualified Code(s): S93.402A - Sprain of unspecified ligament of left ankle, initial encounter Gout attack Qualifiers: Gout site: ankle Gout etiology: unspecified cause Laterality: left Qualified Code(s): M10.9 - Gout, unspecified Patient Disposition: Home, Self-Care Condition: Stable Instructions: Ankle Sprain (ED), Gout (ED) Additional Instructions: Indocin 50 mg 3 times a day for pain. Take Tylenol 500 mg 2 tablets 4 times a day as needed for extra pain relief. Use your splint for comfort and crutches for comfort. Follow-up with your primary care provider this week. Return if you get worse or develops any new symptoms. Patient Language: Bermudian Prescriptions: New indomethacin 50 mg capsule 50 mg PO TID Qty: 30 0RF Rx Instructions: administer with food or milk prednisone 20 mg tablet 40 mg PO DAILY 5 Days Qty: 10 0RF (DME) crutches See Rx Instructions .Route .MEDSUPPLY Qty: 1 0RF Rx Instructions: As directed Use crutches as directed. for ankle sprain and or gout attack No Action allopurinol 100 mg tablet See Rx Instructions .ROUTE .COMPLEX Qty: 60 0RF Dose Instruction: TAKE 1 TABLET BY MOUTH TWICE DAILY (PLEASE MAKE APPOINTMENT FOR FURTHER REFILLS) Rx Instructions: TAKE 1 TABLET BY MOUTH TWICE DAILY (PLEASE MAKE APPOINTMENT FOR FURTHER REFILLS) lisinopril-hydrochlorothiazide 20-25 mg tablet See Rx Instructions .ROUTE .COMPLEX Qty: 90 1RF Dose Instruction: TAKE 1 TABLET BY MOUTH ONCE DAILY (PLEASE MAKE APPOINTMENT FOR FURTHER REFILLS) Rx Instructions: TAKE 1 TABLET BY MOUTH ONCE DAILY (PLEASE MAKE APPOINTMENT FOR FURTHER REFILLS) diclofenac sodium 75 mg tablet,delayed release (DR/EC) 75 mg PO BID PRN (Reason: pain (scale score 7-10)) Qty: 60 0RF Follow-up/Referrals: Bishnu Youssef DO [Primary Care Provider] - Time of Disposition: 13:03
[2024-10-01 11:01] LABS: Hematocrit 40.4 % (40.0-54.0); Hemoglobin 13.4 g/dL (14.0-18.0); Mean Corpuscular HGB Conc 33.2 g/dL (32-36); Mean Corpuscular Hemoglobin 30.6 pg (27.0-31.0); Mean Corpuscular Volume 92.2 fL (78.0-102.0); Mean Platelet Volume 9.6 fl (8.7-11.0); Platelet Count Result 270 K/mm3 (150-420); Red Blood Count 4.38 M/mm3 (4.70-6.10); Red Cell Distribution Width 12.5 % (11.6-14.4); White Blood Count 8.1 K/mm3 (4.8-10.8)
[2024-10-01] MEDS: KETOROLAC 30 MG/ML VIAL (*BKC) IM (11:06)
[2024-10-01 11:18] LABS: Alanine Aminotransferase 46 U/L (16-63); Albumin Level 3.5 g/dL (3.4-5.0); Alkaline Phosphatase 90 U/L (46-116); Anion Gap 9 mmol/L (4-12); Aspartate Amino Transferase 22 U/L (15-37); Bilirubin,Total 0.7 mg/dL (0.00-1.00); Blood Urea Nitrogen 11 mg/dL (7-18); Calcium 8.9 mg/dL (8.5-10.1); Carbon Dioxide 27 mmol/L (21-32); Chloride 105 mmol/L (98-108); Estimated CRCL calculation 70 ml/min; Estimated Glomerular Filt Rate > 60; Glucose 90 mg/dL (70-99); Osmolality Calculated 291 mOsm/kg (285-295); Potassium 4.1 mmol/L (3.5-5.1); Sodium 141 mmol/L (136-145); Total Protein 7.2 g/dL (6.4-8.2)
[2024-10-01 11:19] LABS: Uric Acid 4.9 mg/dL (3.5-7.2)
--- NOTE | 2024-10-01 11:19 | PC.NURSE ---
PT IS SITTING ON STRETCHER AWAITING RESULTS AT THIS TIME. NAD NOTED. PT DENIES ANY NEEDS OR COMPLAINTS. WILL CONTINUE TO MONITOR.
--- OUTSIDE RECORDS SUMMARY | 2024-10-01 11:24 | XMS_ITS | Clinical Summary ---
Author Organization [facility] Address [address] [place], [place] [id number] Care Team Providers Care Can Worker Name Role Phone None, Provider MD Primary Care Provider Unavaila ble Allergies No known active allergies Social History Tobacco Use Types Packs/Day Years Used Date Smoking Tobacco: Former Cigarettes Smokeless Tobacco: Never Tobacco Cessation:Counseling Given: Not Answered Alcohol Use Standard Drinks/Week Comments Yes 0 (1 standard drink = 0.6 oz pur e alcohol) weekends Sex and Gender Information Value Date Recorded Sex Assigned at Not on file Legal Sex Male 8:27 PM CDT Gender Identity Not on file Sexual Orientation Not on file Last Filed Vital Signs Vital Sign Reading Time Taken Comments Blood Pressure 171/97 11/29/2023 3:04 PM CDT Pulse 101 11/29/2023 3:04 PM CDT Temperature 36.8 C (98.2 F) 11/29/2023 3:04 PM CDT Respiratory Rate 16 11/29/2023 3:04 PM CDT Oxygen Saturation 98% 11/29/2023 3:05 PM CDT Inhaled Oxygen Concentration - - Weight 94.3 kg (207 lb 14.3 oz) 11/29/2023 3:04 PM CDT Height 162.6 cm (5' 4 ) 11/29/2023 3:04 PM CDT Body Mass Index 35.68 11/29/2023 3:04 PM CDT Plan of Treatment Health Maintenance Due Date Last Done Comments Colorectal Cancer Screening Colonoscopy (10 Years) 1964 Annual Physical 10/18/1967 Hepatitis C 1982 Zoster Vaccines (1 of 2) 2014 COVID-19 Vaccine (3 - 2023-2 5 season) 2024 01/23/2021, 01/01/2021 Influenza Adult (#1) 2024 05/07/2020, 07/06/2018 DTaP, Tdap and Td Vaccines ( 2 - Td or Tdap) 07/06/2028 07/06/2018 Meningococcal B Vaccine Aged Out No l onger eligible based on patient's age to complete this topic Meningococcal Vaccine Aged Out No dereje mer eligible based on patient's age to complete this topic Pneumococcal Vaccine: Pediatrics (0 to 5 Years) and At-Risk Patients (6 to 64 Years) Aged Out No longer eligible b ased on patient's age to complete this topic RSV Immunizations Under 20 Months Aged Out No longer eligible b ased on patient's age to complete this topic Insurance [facility] Care Teams Can Worker Relationship Specialty Start Date End Date None, Provider, MD PCP - General UNKNOWN PHYSICIAN SPECIALTY 11/29/23
--- OUTSIDE RECORDS SUMMARY | 2024-10-01 11:24 | XMS_ITS | Data Portability ---
Author Organization 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 I do not think he has had any other significant injury to his left shoulder area including no injury to the rotator cuff. He is currently functioning normally with his shoulder. He can work without restrictions or limitations. He will be seen back on an as-needed basis, only if he has recurrent pain or problems. [email or web address] Not available 12/28/2023 12:07:30 Plan of Treatment Reminders Order Date Submit Date Provider Last Modified By Organization Details Last Modified Time Details Appointments None record ed. Lab None record ed. Referral None record ed. Procedures None record ed. Surgeries None record ed. Imaging None record ed. Medication Orders None record ed. Patient TargetsNo targets recorded. Patient InstructionsNo instructions recorded. Reason for Referral None Reported. Medical Equipment None Reported. Medications Name Sig Start Date Stop Date Status Note LastModified by Organization Details LastModified Time metronidazole 500 mg tablet TAKE 1 TABLET BY MOUTH EVERY 6 HOURS FOR 10 DAYS active Not Available Not Available No t Available allopurinol 100 mg tablet TAKE 1 TABLET BY MOUTH TWICE DAILY active Not Available Not Available No t Available ciprofloxacin 500 mg tablet TAKE 1 TABLET BY MOUTH EVERY 12 HOURS active Not Available Not Available No t Available sulfamethoxazole 800 mg-trimethoprim 160 mg tablet TAKE 1 TABLET BY MOUTH 2 TIMES DAILY FOR 10 DAYS active Not Available Not Available No t Available baclofen 10 mg tablet TAKE 1 TABLET BY MOUTH THREE TIMES DAILY FOR 7 DAYS active Not Available Not Available No t Available lisinopril 20 mg-hydrochloroth iazide 25 mg tablet TAKE 1 TABLET BY MOUTH ONCE DAILY active Not Available Not Available No t Available naproxen 500 mg tablet TAKE 1 TABLET BY MOUTH TWICE DAILY WITH MEALS FOR 7 DAYS active Not Available Not Available No t Available Vitals Date Recorded Body height Body mass index (BMI) Body weight Heart rate Oxygen saturation Oxygen saturation in Arterial blood by Pulse oximetry Systolic blood pressure Diastolic blood pressure Provider Name and Address Organization Details Last Updated DateTime 4 162.56 cm 36.2 kg/m2 61169.9 9 g 79 /min 97 % 97 % 158 mm[Hg] 82 mm[Hg] Edie Barnett [facility] 4 10:43:56 Social History None recorded. Functional Status None recorded. Mental Status None recorded. Family History Nothing Reported. Medical History No medical history recorded. Past Encounters Encounter ID Performer Location Encounter Start Date Encounter Closed Date Diagnosis/Indication Diagnosis SNOMED-CT Code Diagnosis ICD10 Code Diagnosis Note [id number] Freedom Erickson MD [address] [facility] ([place]) [address] [place] [id number] 12/25/2023 10:17:04 12/25/2023 11:20:32 Health Concerns Section Related Observation LastModified by Organization Detai ls LastModified Time None Recorded Concern Status LastModified by Organization Details LastModified Time None Recorded Advance Directives Directive None Recorded Payers Encounter Date Sequence Insurance Name Policy Number Policy Gallegos Covered Member ID Gallegos Member ID Guarantor Name 12/25/2023 [facility] MICHAELA [employer] Atul Marrero Notes Date Note Type Note Provider Name and Address Organization Details Recorded Time 12/25/2023 text/html This is a 58-year-old male who is seen concerning left shoulder pain. He is right-hand dominant. On 11/27/2023, he was pulling open the charles of his truck. 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 He had pain in his shoulder following this activity. He had significant decreased range of motion in his shoulder. The symptoms were pretty severe for about 3 days. He took about 10 days off of work and the symptoms in his shoulder significantly improved over time. He is back doing his normal work activities. He currently feels his shoulder function has essentially returned to normal. He is only having mild pain in his shoulder. He has no significant issues with his left shoulder prior to this incident. He has no complaints of neck pain. He has no complaints of numbness and tingling in his left hand. He did have some left shoulder x-rays obtained after his injury. He has had no other imaging studies obtained. Freedom Erickson MD [address], [id number], [facility] 01/02/2024 22:01:58
[2024-10-01 12:00] LABS: Erythrocyte Sedimentation Rate 42 mm/hr (0-20)
--- OUTSIDE RECORDS SUMMARY | 2024-10-01 12:57 | XMS_ITS | Clinical Summary ---
Author Organization [facility] Address [address] [place], [place] [id number] Care Team Providers Care Payroll Tax Specialist Name Role Phone None, Provider MD Primary [...] patient's age to complete this topic Insurance [facility] Care Teams Payroll Tax Specialist Relationship Specialty Start Date End Date None, Provider, MD PCP - General UNKNOWN PHYSICIAN SPECIALTY 11/29/23
[2024-10-01 13:08] VITALS: BP 158/70; PULSE 78; RESP 18; O2SAT 99
--- NOTE | 2024-10-01 13:31 | PC.NURSE ---
UNABLE TO PROVIDE CRUTCHES OR TRAINING DUE TO NOT STOCKING THEM AT [facility], ANANDA IS AWARE.
== END 2024-10-01 13:08 | disposition home or self-care (01) ==
PROVIDERS: Emergency Provider Emergency Medicine; PCP Family Medicine
DX: S93.402A Sprain of unspecified ligament of left ankle, initial encounter (principal); M10.9 Gout, unspecified; X58.XXXA Exposure to other specified factors, initial encounter; I10 Essential (primary) hypertension; Z87.891 Personal history of nicotine dependence
CPT/HCPCS: 29515; 36415; 73610; 73630; 80053; 84550; 85027; 85652; 96372; 99283; J1885; L4350